=== PATIENT | male | born 2005 | race Caucasian/White ===

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

== ENCOUNTER → 2024-01-14 15:24 | Outpatient (BNVA) | payer OTHER, SELFPAY | PROVIDERS: PCP Family Medicine; Visit Provider Registered Nurse Neonatal Intensive Care | DX: R51.9 Headache, unspecified (principal) | CPT/HCPCS: 87400; 87880 ==

== ENCOUNTER 2024-02-24 10:49 | Outpatient (CLI) | payer OTHER, SELFPAY ==
[2024-02-28 08:59] LABS: Lamotrigine (Lamictal) Level 8.6 mcg/mL (2.5-15.0)
== END 2024-02-24 10:50 | disposition home or self-care (01) ==
PROVIDERS: PCP Family Medicine; Visit Provider Specialist
DX: G40.209 Localization-related (focal) (partial) symptomatic epilepsy and epileptic syndromes with complex partial seizures, not intractable, without status epilepticus (principal); R29.90 Unspecified symptoms and signs involving the nervous system
CPT/HCPCS: 36415; 80175

== ENCOUNTER 2024-04-01 10:50 | Outpatient (CLI) | payer OTHER, SELFPAY | END 2024-04-01 10:51 | disposition home or self-care (01) | PROVIDERS: PCP Family Medicine; Visit Provider Specialist | DX: R29.90 Unspecified symptoms and signs involving the nervous system (principal) | CPT/HCPCS: 36415; 80175 ==

== ENCOUNTER 2024-04-08 08:49 | Outpatient (CLI) | payer OTHER, SELFPAY | END 2024-04-08 08:50 | disposition home or self-care (01) | LOC: LAB 08:55 | PROVIDERS: PCP Family Medicine; Visit Provider Specialist | DX: G40.209 Localization-related (focal) (partial) symptomatic epilepsy and epileptic syndromes with complex partial seizures, not intractable, without status epilepticus (principal) | CPT/HCPCS: 36415; 80175 ==

== ENCOUNTER 2024-08-28 10:38 | Outpatient (CLI) | payer SELFPAY | END 2024-08-28 10:39 | disposition home or self-care (01) | LOC: LAB 10:41 | PROVIDERS: PCP Family Medicine; Visit Provider Specialist | DX: G40.209 Localization-related (focal) (partial) symptomatic epilepsy and epileptic syndromes with complex partial seizures, not intractable, without status epilepticus (principal) | CPT/HCPCS: 80175 ==

== ENCOUNTER 2024-09-08 13:29 | Outpatient (CLI) | payer OTHER, SELFPAY | END 2024-09-08 13:30 | disposition home or self-care (01) | LOC: LAB 13:39 | PROVIDERS: PCP Family Medicine; Visit Provider Specialist | DX: G40.209 Localization-related (focal) (partial) symptomatic epilepsy and epileptic syndromes with complex partial seizures, not intractable, without status epilepticus (principal) | CPT/HCPCS: 36415; 80175 ==